=== PATIENT | female | born 2000 | race Caucasian/White ===

== ENCOUNTER 2018-07-30 11:06 | Emergency (ER) | payer BC ==
[2018-07-30] MEDS ORDERED: Famotidine/PF 20 mg/2ml Vial ONE (12:18)
[2018-07-30] MEDS ORDERED: Ondansetron PF 4 MG/2 ML Vial ONE ×2 (12:18→13:19)
[2018-07-30 12:28] LABS: #Lymphocytes 0.6 thou/uL (1.20-3.40); #Monocytes 0.6 thou/uL (0.11-0.59); #Neutrophils 8.5 thou/uL (1.40-6.50); %Basophils 0.1 % (0.0-1.0); %Eosinophils 0.3 % (0.0-10.0); %Lymphocytes 5.8 % (28.0-48.0); %Monocytes 5.8 % (0.0-4.0); Hemoglobin 12.8 g/dL (12.0-16.0); Mean Corpuscular HGB CONC 34.1 g/dL (32.0-36.0); Mean Corpuscular Hemoglobin 30.5 pg (25.0-35.0); Mean Corpuscular Volume 89.4 fL (78.0-98.0); Mean Platelet Volume 8.5 fL (7.4-10.4); Platelet Count 230 thou/uL (130-400); RBC Distribution Width 11.6 % (11.5-14.5); White Blood Cell (WBC) Count 9.7 thou/uL (4.8-10.8)
[2018-07-30 12:46] LABS: ALT (SGPT) 14 U/L (8-55); AST (SGOT) 14 U/L (5-30); Albumin 4.9 g/dL (3.5-5.0); Alkaline Phosphatase 85 U/L (40-150); Anion Gap 13 mmol/L (10-20); BUN (Urea Nitrogen) 12 mg/dL (8.4-21.0); Bilirubin, Total 1.3 mg/dL (0.2-1.2); Calc. Creatinine Clearance 0 mL/min (70-130); Carbon Dioxide 24 mmol/L (22-29); Chloride 102 mmol/L (98-107); Estimated GFR-MDRD 87; Globulin 3.4 g/dL (2.4-3.5); Glucose 111 mg/dL (70-105); Lipase 26 U/L (8-78); Potassium 3.9 mmol/L (3.5-5.1); Protein, Total 8.3 g/dL (6.0-8.3); Sodium 135 mmol/L (136-145)
[2018-07-30] MEDS ORDERED: Promethazine HCl 25 MG/ML VIAL ONE (15:08)
[2018-07-30 15:39] LABS: Bilirubin Negative (Negative); Blood, Urine Negative (Negative); Clarity CLEAR (Clear); Glucose, Urine (Dipstick) Negative (Negative); Leukocyte Negative (Negative); Nitrite Negative (Negative); Protein, Urine (Dipstick) Negative (Neg-Trace); Specific Gravity, Urine 1.009 (1.002-1.036)
[2018-07-30 15:40] LABS: Pregnancy Test - Urine (BHCG) Negative (Negative); Pregu Control Background? CLEAR/WHITE (CLR/WHITE); Pregu Control Bar Appear? YES (CONTROL BAR); Specific Gravity 1.009 (1.002-1.036)
--- NOTE | 2018-07-30 17:38 | CT ---
CT ABDOMEN WITH CONTRAST CT PELVIS WITH CONTRAST: DATE: 07/30/18 HISTORY: 17-year-old female with nausea, vomiting, and generalized abdominal pain. COMPARISON: None. TECHNIQUE: IV injection of iodinated contrast media: 100 mL Isovue 370 Oral contrast media: PO Isovue FINDINGS: There is an approximately 3 x 2.5 x 2.5 cm cystic structure at the anteromedial aspect of the right r enal mid and lower poles. Uncertain whether this represents an exophytic cyst or dilated extrarenal p francisco. No dilation of the calyces. Right kidney is smaller than the left. Bilateral nephrograms are o therwise symmetrical. Liver, abdominal aorta, pancreas, adrenals, and spleen, appear normal. A small amount of oral contrast material has reached the ascending colon. However, because of lack of visceral fat, it is difficult to identify the appendix with certainty. No evidence of abscess in the right lower quadrant. Urinary bladder is decompressed. Minimal amount of free fluid in the cul-de-sac. No small bowel dilation. No large ovarian cyst identified. No definite signs of colonic diverticulitis. IMPRESSION: 1. Appendix not identified with certainty. No overt evidence of ruptured appendicitis. 2. Right kidney is slightly small. 3. Right exophytic renal cyst versus extrarenal pelvis. JN R POS: TPC
== END 2018-07-30 17:25 | disposition home or self-care (01) ==
LOC: ERS 11:06
DX: R11.2 Nausea with vomiting, unspecified (principal); R10.9 Unspecified abdominal pain; F41.9 Anxiety disorder, unspecified
CPT/HCPCS: 74177; 80053; 81003; 81025; 83690; 85025; 96361; 96374; 96375; 96376; J2405; J2550; S0028